=== PATIENT | female | born 1970 | race Caucasian/White ===

== ENCOUNTER 2018-10-09 15:12 | Emergency (ER) | payer OTHER ==
[2018-10-09 15:39] LABS: Bilirubin Negative (Negative); Blood, Urine Negative (Negative); Clarity Clear (Clear); Glucose, Urine (Dipstick) Negative (Negative); Leukocyte Negative (Negative); Nitrite Negative (Negative); Protein, Urine (Dipstick) Negative (Neg-Trace); Specific Gravity, Urine 1.007 (1.002-1.036); Urobilinogen 0.2 mg/dL (0.2-1.0); pH, Urine 5.5 (5.0-9.0)
[2018-10-09 15:53] LABS: #Basophils 0.1 thou/uL (0.0-0.2); #Eosinphils 0.1 thou/uL (0.0-0.7); #Lymphocytes 2.9 thou/uL (1.20-3.40); #Monocytes 0.5 thou/uL (0.11-0.59); #Neutrophils 5.3 thou/uL (1.40-6.50); %Basophils 1.1 % (0.0-1.0); %Eosinophils 1.2 % (0.0-10.0); %Monocytes 5.1 % (0.0-10.0); %Neutrophils 59.6 % (42.0-75.0); Hemoglobin 13.6 g/dL (12.0-16.0); Mean Corpuscular HGB CONC 32.8 g/dL (32.0-36.0); Mean Corpuscular Hemoglobin 28.4 pg (27.0-31.0); Mean Corpuscular Volume 86.5 fL (78.0-98.0); Mean Platelet Volume 9.3 fL (7.4-10.4); Platelet Count 192 thou/uL (130-400); RBC Distribution Width 11.7 % (11.5-14.5); Red Blood Cell (RBC) Count 4.79 mill/uL (4.20-5.40); White Blood Cell (WBC) Count 8.8 thou/uL (4.8-10.8)
[2018-10-09 16:09] LABS: ALT (SGPT) 12 U/L (8-55); AST (SGOT) 12 U/L (5-34); Albumin 3.9 g/dL (3.5-5.0); Alkaline Phosphatase 77 U/L (40-150); Anion Gap 11 mmol/L (10-20); BUN (Urea Nitrogen) 13 mg/dL (7.0-18.7); Bilirubin, Total 1.1 mg/dL (0.2-1.2); Calc. Creatinine Clearance 0 mL/min (70-130); Calcium 9.1 mg/dL (7.8-10.44); Carbon Dioxide 25 mmol/L (22-29); Chloride 109 mmol/L (98-107); Estimated GFR-MDRD 68; Glucose 93 mg/dL (70-105); Potassium 3.8 mmol/L (3.5-5.1); Protein, Total 6.9 g/dL (6.0-8.3); Sodium 141 mmol/L (136-145)
[2018-10-09] MEDS ORDERED: Morphine 4 MG/ML VIAL ONE (16:15)
[2018-10-09] MEDS ORDERED: Famotidine/PF 20 mg/2ml Vial ONE (16:15)
[2018-10-09] MEDS ORDERED: Ondansetron PF 4 MG/2 ML Vial ONE (16:15)
[2018-10-09 16:21] LABS: CKMB 0.7 ng/mL (0-6.6); Troponin I Less than 0.010 ng/mL (< 0.028)
--- NOTE | 2018-10-09 16:56 | CT ---
CT ABDOMEN AND PELVIS WITHOUT CONTRAST: Date: 10/09/18 HISTORY: Left upper quadrant pain. COMPARISON: None. FINDINGS: The lung bases are clear. No pericardial effusion. Prior cholecystectomy. [place] effect of common bile duct. There is no nephroureterolithiasis or hydroureteronephrosis. No secondary evidence of recently passed stone. Moderate degenerative disc space changes at L5-S1 with end plate sclerosis and osteophyte for mation. There is a right adnexal hypodensity which is retrouterine and midline. IMPRESSION: 1. No nephroureterolithiasis or hydroureteronephrosis. No secondary evidence of a recently passed st one. 2. No acute inflammatory process within the abdomen or pelvis. POS: [facility]
== END 2018-10-09 18:39 | disposition home or self-care (01) ==
LOC: SCSER 15:12
DX: R10.12 Left upper quadrant pain (principal)
CPT/HCPCS: 36415; 74176; 80053; 81003; 82553; 83690; 84484; 85025; 85379; 93005; 96361; 96374; 96375; J2270; J2405; S0028